=== PATIENT | female | born 1945 | race Caucasian/White ===

== ENCOUNTER 2016-07-06 09:33 | Emergency (ER) | payer OTHER ==
[~2016-07-06] VITALS: Ht 165.1 cm; Wt 58.6 kg
[2016-07-06] MEDS ORDERED: ATOR20TA86 PO (09:39)
[2016-07-06] MEDS ORDERED: ASPI81 PO (09:39)
[2016-07-06] MEDS ORDERED: LISI-662 PO (09:39)
[2016-07-06] MEDS ORDERED: OMEG300C3 PO (09:39)
[2016-07-06] MEDS ORDERED: HYDROCODONE/ACETAMINOPHEN 5-325 MG TABLET PO ONE (11:00)
[2016-07-06 11:40] VITALS: BP 119/85
== END 2016-07-06 11:41 | disposition home or self-care (01) ==
LOC: EMS 09:44
DX: S52.502A Unspecified fracture of the lower end of left radius, initial encounter for closed fracture (principal); I10 Essential (primary) hypertension; E78.00 Pure hypercholesterolemia, unspecified; Z79.82 Long term (current) use of aspirin; W06.XXXA Fall from bed, initial encounter; Y93.89 Activity, other specified; Y92.89 Other specified places as the place of occurrence of the external cause; Y99.8 Other external cause status
CPT/HCPCS: 99284